=== PATIENT | female | born 2000 | race Caucasian/White ===

== ENCOUNTER 2018-05-19 11:41 | Emergency (ER) | payer OTHER ==
[2018-05-19] MEDS: KETOROLAC 30 MG INJ IM (14:11)
== END 2018-05-19 14:56 | disposition home or self-care (01) ==
LOC: FTE 11:41
DX: R51 Headache (principal)
CPT/HCPCS: 81025; 96372; 99284-25

== ENCOUNTER 2018-05-21 17:53 | Emergency (ER) | payer OTHER ==
[2018-05-21] MEDS: LORAZEPAM 0.5 MG TAB PO (19:08)
== END 2018-05-21 20:05 | disposition home or self-care (01) ==
LOC: FTE 17:53
DX: G44.209 Tension-type headache, unspecified, not intractable (principal); R40.2412 Glasgow coma scale score 13-15, at arrival to emergency department
CPT/HCPCS: 99283; Z7502

== ENCOUNTER 2018-08-06 18:25 | Emergency (ER) | payer OTHER ==
[2018-08-06] MEDS: KETOROLAC 30 MG INJ IV (21:05)
[2018-08-06] MEDS: ONDANSETRON 4 MG INJ IV (21:05)
[2018-08-06] MEDS: SUMATRIPTAN 25 MG TAB PO (23:07)
== END 2018-08-06 23:20 | disposition home or self-care (01) ==
LOC: FTE 18:25
DX: J01.00 Acute maxillary sinusitis, unspecified (principal); G43.009 Migraine without aura, not intractable, without status migrainosus
CPT/HCPCS: 70450; 81025; 96374; 96375; 99285-25